=== PATIENT | female | born 1955 | race Caucasian/White ===

== ENCOUNTER 2017-02-03 18:22 | Inpatient (IN) | payer MEDICARE, OTHER ==
[~2017-02-03] VITALS: Ht 154.9 cm; Wt 84.6 kg
[2017-02-03] MEDS ORDERED: PARO10TA89 PO (18:30)
[2017-02-03] MEDS ORDERED: VITAD1000 PO (18:30)
[2017-02-03] MEDS ORDERED: NITR.4 SL (18:30)
[2017-02-03] MEDS ORDERED: LEVO125 PO (18:30)
[2017-02-03] MEDS ORDERED: METF850T2 PO (18:30)
[2017-02-03] MEDS ORDERED: OMEP20 PO (18:30)
[2017-02-03] MEDS ORDERED: LOSA25TA21 PO (18:36)
[2017-02-03 18:43] LABS: GLUCOSE,POINT OF CARE 190 MG/DL (70-110)
[2017-02-03] MEDS ORDERED: LEVO175T9 PO (18:52)
[2017-02-03] MEDS ORDERED: ACETAMINOPHEN 500 MG TABLET PO ONE (19:00)
[2017-02-03] MEDS ORDERED: SODIUM CHLORIDE 0.9% 1,000 ML IV ONE ×2 (19:00→20:45)
[2017-02-03 19:44] LABS: BASOPHILS # (AUTO) 0.02 K/uL (0.00-0.20); BASOPHILS % (AUTO) 0.1 % (0.0-2.0); EOSINOPHILS # (AUTO) 0.01 K/uL (0.00-0.70); EOSINOPHILS % (AUTO) 0.07 % (1.0-6.0); HEMATOCRIT 37.6 % (36-46); HEMOGLOBIN 12.8 g/dL (12.0-16.0); LYMPHOCYTES # (AUTO) 1.3 K/uL (1.0-4.8); LYMPHOCYTES % (AUTO) 11.5 % (22.0-44.0); MEAN CORPUSCULAR HEMOGLOBIN 32.8 pg (26.0-34.0); MEAN CORPUSCULAR HGB CONC 34.1 G/dL (31.0-37.0); MEAN CORPUSCULAR VOLUME 96 fL (80-100); MONOCYTES # (AUTO) 0.8 K/uL (0.1-1.0); MONOCYTES % (AUTO) 6.6 % (2.0-9.0); NEUTROPHILS # (AUTO) 9.5 K/uL (1.8-7.7); NEUTROPHILS % (AUTO) 81.7 % (40.0-70.0); PLATELET COUNT (AUTO) 193 K/uL (150-450); RED BLOOD CELL COUNT(AUTO) 3.92 MIL/uL (4.00-5.20); RED CELL DISTRIBUTION WIDTH 13.9 % (11.5-14.5); WHITE BLOOD COUNT (AUTO) 11.6 K/uL (4.5-11.0)
[2017-02-03 19:52] LABS: CALCIUM, TOTAL 9.1 mg/dL (8.8-10.5); CREATININE 1.22 mg/dL (0.60-1.30); POTASSIUM 3.7 mmol/L (3.5-5.1)
[2017-02-03 19:59] LABS: ALBUMIN 3.4 g/dL (3.4-5.0); BILIRUBIN,TOTAL 0.6 mg/dL (0.1-1.0); TOTAL PROTEIN, SERUM 8.3 g/dL (6.4-8.2)
[2017-02-03] MEDS ORDERED: CefTRIAXone 1 GM/DEXTROSE 50 ML IV ONE (20:00)
[2017-02-03 20:01] LABS: INFLUENZA TYPE B NEGATIVE FOR TYPE B (NEGATIVE)
[2017-02-03 20:02] LABS: APPEARANCE,URINE CLOUDY (CLEAR); GLUCOSE, URINE (UA) NEGATIVE (NEGATIVE); KETONES,URINE TRACE mg/dL (NEGATIVE); LEUKOCYTE ESTERASE ,URINE MODERATE (NEGATIVE); OCCULT BLOOD,URINE MODERATE (NEGATIVE); PROTEIN,URINE SEE CONFIRM (NEGATIVE)
[2017-02-03 20:18] LABS: SQUAMOUS EPITHELIAL CELL,UR Few /LPF (None Seen); SULFOSALICYLIC ACID,URINE 3+ (Negative); WBC,URINE 26-50 /HPF (0-5)
[2017-02-03 20:39] LABS: LACTIC ACID 1.1 mmol/L (0.4-2.0)
[2017-02-03] MEDS ORDERED: INSULIN REGULAR, HUMAN 100 UNITS/ML SQ PRN (20:45)
[2017-02-03] MEDS ORDERED: ONDANSETRON HCL 4 MG/2 ML VIAL IVP PRN (20:45)
[2017-02-03] MEDS ORDERED: DEXTROSE 50%-WATER 25 GM/50 ML SYRINGE IVP PRN (20:45)
[2017-02-03 22:25] VITALS: BP 123/62
[2017-02-03] MEDS: ACETAMINOPHEN 325 MG TABLET PO PRN (22:45)
[2017-02-04 04:11] VITALS: BP 131/69
[2017-02-04] MEDS: ACETAMINOPHEN 325 MG TABLET PO PRN (06:02)
[2017-02-04 07:00] LABS: HEMOGLOBIN A1C 6.9 % (4.5-6.2)
[2017-02-04 07:21] VITALS: BP 123/46
[2017-02-04 07:32] LABS: THYROID STIMULATING HORMONE 7.39 uIU/mL (0.36-3.74)
[2017-02-04] MEDS ORDERED: ACETAMINOPHEN 325 MG TABLET PO ONE (09:30)
[2017-02-04 11:53] VITALS: BP 112/57
[2017-02-04 14:48] LABS: GLUCOSE COMMENT 1 Received Meds; GLUCOSE,POINT OF CARE 179 MG/DL (70-110)
[2017-02-04 14:48] LABS: GLUCOSE,POINT OF CARE 173 MG/DL (70-110)
[2017-02-04 15:24] VITALS: BP 123/65
[2017-02-04] MEDS ORDERED: ACETAMINOPHEN 325 MG TABLET PO PRN (15:30)
[2017-02-04] MEDS ORDERED: ONDANSETRON HCL 4 MG/2 ML VIAL IVP PRN (15:30)
[2017-02-04] MEDS ORDERED: DEXTROSE 50%-WATER 25 GM/50 ML SYRINGE IVP PRN (17:00)
[2017-02-04 17:08] LABS: GLUCOSE,POINT OF CARE 135 MG/DL (70-110)
[2017-02-04 19:11] VITALS: BP 130/67
[2017-02-04] MEDS: HYDROCODONE/ACETAMINOPHEN 5-325 MG TABLET PO PRN (20:20)
[2017-02-04] MEDS: INSULIN REGULAR, HUMAN 100 UNITS/ML SQ PRN (20:21)
[2017-02-04 23:28] LABS: GLUCOSE COMMENT 1 Received Meds; GLUCOSE,POINT OF CARE 213 MG/DL (70-110)
[2017-02-04 23:52] VITALS: BP 120/63
[2017-02-05] MEDS: HYDROCODONE/ACETAMINOPHEN 5-325 MG TABLET PO PRN ×4 (02:28→22:37)
[2017-02-05 04:54] VITALS: BP 115/60
[2017-02-05] MEDS: INSULIN REGULAR, HUMAN 100 UNITS/ML SQ PRN ×4 (06:10→20:15)
[2017-02-05 06:48] LABS: GLUCOSE COMMENT 1 Received Meds; GLUCOSE,POINT OF CARE 145 MG/DL (70-110)
[2017-02-05 07:08] VITALS: BP 125/57
[2017-02-05] MEDS ORDERED: SODIUM CHLORIDE 0.9% 50 ML ONE (09:38)
[2017-02-05] MEDS: MetFORMIN HCL 850 MG TABLET PO SCH (09:40)
[2017-02-05] MEDS: CefTRIAXone 1 GM/DEXTROSE 50 ML IV SCH (09:40)
[2017-02-05 11:08] VITALS: BP 122/73
[2017-02-05 14:58] LABS: GLUCOSE,POINT OF CARE 219 MG/DL (70-110)
[2017-02-05 15:13] VITALS: BP 112/64
[2017-02-05 19:35] VITALS: BP 138/75
[2017-02-05 22:48] LABS: GLUCOSE COMMENT 1 Received Meds; GLUCOSE,POINT OF CARE 178 MG/DL (70-110)
[2017-02-05 22:48] LABS: GLUCOSE,POINT OF CARE 157 MG/DL (70-110)
[2017-02-06 00:02] VITALS: BP 114/57
[2017-02-06 04:26] VITALS: BP 120/86
[2017-02-06] MEDS: HYDROCODONE/ACETAMINOPHEN 5-325 MG TABLET PO PRN (05:14)
[2017-02-06 05:45] LABS: BASOPHILS # (AUTO) 0.05 K/uL (0.00-0.20); BASOPHILS % (AUTO) 0.6 % (0.0-2.0); EOSINOPHILS # (AUTO) 0.36 K/uL (0.00-0.70); EOSINOPHILS % (AUTO) 4.17 % (1.0-6.0); HEMATOCRIT 35.9 % (36-46); HEMOGLOBIN 11.9 g/dL (12.0-16.0); LYMPHOCYTES # (AUTO) 2.7 K/uL (1.0-4.8); LYMPHOCYTES % (AUTO) 31.5 % (22.0-44.0); MEAN CORPUSCULAR HEMOGLOBIN 32.3 pg (26.0-34.0); MEAN CORPUSCULAR HGB CONC 33.2 G/dL (31.0-37.0); MEAN CORPUSCULAR VOLUME 97 fL (80-100); MONOCYTES # (AUTO) 0.6 K/uL (0.1-1.0); MONOCYTES % (AUTO) 7.3 % (2.0-9.0); NEUTROPHILS # (AUTO) 4.9 K/uL (1.8-7.7); NEUTROPHILS % (AUTO) 56.5 % (40.0-70.0); PLATELET COUNT (AUTO) 260 K/uL (150-450); RED BLOOD CELL COUNT(AUTO) 3.69 MIL/uL (4.00-5.20); RED CELL DISTRIBUTION WIDTH 14.2 % (11.5-14.5); WHITE BLOOD COUNT (AUTO) 8.6 K/uL (4.5-11.0)
[2017-02-06 06:10] LABS: ANION GAP 11 mmol/L (8-16); CARBON DIOXIDE 25 mmol/L (22-29); CHLORIDE 101 mmol/L (98-107); GLOMERULAR FILTR. RATE CALC > 60 mL/min (>60); POTASSIUM 3.7 mmol/L (3.5-5.1); SODIUM SERUM 137 mmol/L (136-145); UREA NITROGEN, BLOOD 14 mg/dL (7-18)
[2017-02-06] MEDS: INSULIN REGULAR, HUMAN 100 UNITS/ML SQ PRN (06:24)
[2017-02-06 07:02] LABS: GLUCOSE COMMENT 1 Received Meds; GLUCOSE,POINT OF CARE 146 MG/DL (70-110)
[2017-02-06 07:12] VITALS: BP 121/67
[2017-02-06] MEDS: CefTRIAXone 1 GM/DEXTROSE 50 ML IV SCH (08:26)
[2017-02-06] MEDS: MetFORMIN HCL 850 MG TABLET PO SCH (08:26)
[2017-02-06] MEDS ORDERED: DEXTROSE 50%-WATER 25 GM/50 ML SYRINGE IVP PRN ×2 (10:45→16:15)
[2017-02-06] MEDS ORDERED: OMEPRAZOLE 20 MG CAPSULE PO SCH (11:00)
[2017-02-06] MEDS ORDERED: PARoxetine HCL 10 MG TABLET PO SCH ×2 (11:00→21:00)
[2017-02-06] MEDS ORDERED: CHOLECALCIFEROL (VIT D3) 1,000 UNITS TABLET PO SCH (11:00)
[2017-02-06] MEDS ORDERED: LOSARTAN POTASSIUM 25 MG TABLET PO SCH (11:00)
[2017-02-06 11:31] VITALS: BP 132/73
[2017-02-06] MEDS ORDERED: CIPR-278 PO (15:27)
[2017-02-06 15:40] VITALS: BP 114/74
[2017-02-06] MEDS ORDERED: INSULIN ASPART 100 UNITS/ML SQ PRN (16:15)
[2017-02-07 03:53] LABS: GLUCOSE,POINT OF CARE 103 MG/DL (70-110)
[2017-02-07 03:53] LABS: GLUCOSE,POINT OF CARE 125 MG/DL (70-110)
== END 2017-02-06 18:33 | disposition home or self-care (01) | DRG 872 ==
LOC: EMS 18:24 → 5N 20:09
PROVIDERS: ADMIT Internal Medicine; ATTEND Family Medicine
DX: A41.9 Sepsis, unspecified organism (principal); E11.65 Type 2 diabetes mellitus with hyperglycemia; N10 Acute pyelonephritis; I10 Essential (primary) hypertension; F41.9 Anxiety disorder, unspecified; K21.9 Gastro-esophageal reflux disease without esophagitis; E03.9 Hypothyroidism, unspecified; F32.9 Major depressive disorder, single episode, unspecified; Z79.84 Long term (current) use of oral hypoglycemic drugs; Z79.899 Other long term (current) drug therapy; Z81.1 Family history of alcohol abuse and dependence; Z83.3 Family history of diabetes mellitus
CPT/HCPCS: 82308; 82962; 83036; 83605; 83735; 84443; 87040; 87086; 87804; 93005; 96360; 96365; 99285; J0696; J2405; J7030; J7050

== ENCOUNTER 2018-02-05 14:37 | Emergency (ER) | payer MEDICARE, OTHER ==
[~2018-02-05] VITALS: Ht 165.1 cm; Wt 100.0 kg
[~2018-02-05 14:37] MED LIST: CIPR-278 PO; LEVO175T9 PO; LOSA25TA16 PO; METF-445 PO; NITR.4 SL; OMEP20 PO; PARO10TA89 PO; VITAD1000 PO
[2018-02-05 14:53] LABS: GLUCOSE,POINT OF CARE 196 MG/DL (70-110)
[2018-02-05] MEDS ORDERED: ONDANSETRON HCL 4 MG/2 ML VIAL IVP ONE (15:30)
[2018-02-05] MEDS ORDERED: KETOROLAC TROMETHAMINE 30 MG/ML VIAL IVP ONE (15:30)
[2018-02-05] MEDS ORDERED: SODIUM CHLORIDE 0.9% 1,000 ML IV ONE (15:30)
[2018-02-05 15:56] LABS: BASOPHILS % (AUTO) 0.9 % (0.0-2.0); EOSINOPHILS % (AUTO) 2.8 % (1.0-6.0); HEMOGLOBIN 14.6 g/dL (12.0-16.0); LYMPHOCYTES % (AUTO) 30.7 % (22.0-44.0); MEAN CORPUSCULAR HGB CONC 34.7 G/dL (31.0-37.0); MEAN CORPUSCULAR VOLUME 95 fL (80-100); MONOCYTES # (AUTO) 0.5 K/uL (0.1-1.0); MONOCYTES % (AUTO) 5.5 % (2.0-9.0); NEUTROPHILS # (AUTO) 5.9 K/uL (1.8-7.7); NEUTROPHILS % (AUTO) 60.1 % (40.0-70.0); PLATELET COUNT (AUTO) 236 K/uL (150-450); RED BLOOD CELL COUNT(AUTO) 4.41 MIL/uL (4.00-5.20); RED CELL DISTRIBUTION WIDTH 13.5 % (11.5-14.5)
[2018-02-05 16:07] LABS: CALCIUM, TOTAL 9.2 mg/dL (8.8-10.5); CREATININE 0.96 mg/dL (0.60-1.30); POTASSIUM 3.8 mmol/L (3.5-5.1)
[2018-02-05 16:32] LABS: ALBUMIN 3.8 g/dL (3.4-5.0); BILIRUBIN,TOTAL 0.2 mg/dL (0.1-1.0); TOTAL PROTEIN, SERUM 8.2 g/dL (6.4-8.2)
[2018-02-05 17:02] LABS: APPEARANCE,URINE CLEAR (CLEAR); BILIRUBIN,URINE NEGATIVE (NEGATIVE); GLUCOSE, URINE (UA) NEGATIVE (NEGATIVE); KETONES,URINE TRACE mg/dL (NEGATIVE); LEUKOCYTE ESTERASE ,URINE SMALL (NEGATIVE); OCCULT BLOOD,URINE NEGATIVE (NEGATIVE); PH,URINE 5.5 (5.0-8.0); PROTEIN,URINE NEGATIVE (NEGATIVE); UROBILINOGEN,URINE 0.2 mg/dL (<=1.0)
[2018-02-05 17:06] LABS: BACTERIA,URINE Many /HPF (None Seen); NITRATE,URINE POSITIVE (NEGATIVE); RBC,URINE 0-2 /HPF (0-2); SQUAMOUS EPITHELIAL CELL,UR Many /LPF (None Seen)
[2018-02-05] MEDS ORDERED: CefTRIAXone SODIUM 1 GM in DEXTROSE 5%-WATER 10 ML IV ONE (17:15)
[2018-02-05 19:53] VITALS: BP 128/80
== END 2018-02-05 20:06 | disposition home or self-care (01) ==
LOC: EMS 14:38
DX: N39.0 Urinary tract infection, site not specified (principal); R42 Dizziness and giddiness; R07.9 Chest pain, unspecified; I20.9 Angina pectoris, unspecified; E11.9 Type 2 diabetes mellitus without complications; K21.9 Gastro-esophageal reflux disease without esophagitis; I10 Essential (primary) hypertension; E03.9 Hypothyroidism, unspecified; F32.9 Major depressive disorder, single episode, unspecified; Z79.84 Long term (current) use of oral hypoglycemic drugs
CPT/HCPCS: 36415; 71045; 80053; 81001; 82550; 82962; 83690; 84484; 85025; 87077; 87086; 87186; 93005; 96361; 96374; 96375; 99285; J0696; J1885; J2405; J7030; J7060

== ENCOUNTER 2018-06-19 07:08 | Emergency (ER) | payer MEDICARE, OTHER ==
[~2018-06-19] VITALS: Ht 165.1 cm; Wt 86.4 kg
[~2018-06-19 07:08] MED LIST changes: -CIPR-278 PO; -LOSA25TA16 PO; +LOSA25TA41 PO
[2018-06-19 07:23] LABS: GLUCOSE,POINT OF CARE 222 MG/DL (70-110)
[2018-06-19] MEDS ORDERED: ACET-2116 PO (07:28)
[2018-06-19] MEDS ORDERED: ATOR40TA28 PO (07:28)
[2018-06-19] MEDS ORDERED: ICOS1CAP PO (07:28)
[2018-06-19] MEDS ORDERED: ONDANSETRON HCL 4 MG/2 ML VIAL IVP ONE ×2 (07:30→09:15)
[2018-06-19 07:42] LABS: BASOPHILS % (AUTO) 0.7 % (0.0-2.0); EOSINOPHILS % (AUTO) 3.6 % (1.0-6.0); HEMOGLOBIN 14.9 g/dL (12.0-16.0); LYMPHOCYTES # (AUTO) 4.2 K/uL (1.0-4.8); LYMPHOCYTES % (AUTO) 38.4 % (22.0-44.0); MEAN CORPUSCULAR HEMOGLOBIN 32.6 pg (26.0-34.0); MEAN CORPUSCULAR HGB CONC 34.6 G/dL (31.0-37.0); MEAN CORPUSCULAR VOLUME 94 fL (80-100); MONOCYTES # (AUTO) 0.6 K/uL (0.1-1.0); MONOCYTES % (AUTO) 5.2 % (2.0-9.0); NEUTROPHILS # (AUTO) 5.7 K/uL (1.8-7.7); NEUTROPHILS % (AUTO) 52.1 % (40.0-70.0); PLATELET COUNT (AUTO) 268 K/uL (150-450); RED BLOOD CELL COUNT(AUTO) 4.55 MIL/uL (4.00-5.20); RED CELL DISTRIBUTION WIDTH 12.9 % (11.5-14.5)
[2018-06-19 07:47] LABS: BILIRUBIN,URINE NEGATIVE (NEGATIVE); GLUCOSE, URINE (UA) NEGATIVE (NEGATIVE); KETONES,URINE TRACE mg/dL (NEGATIVE); LEUKOCYTE ESTERASE ,URINE SMALL (NEGATIVE); NITRATE,URINE NEGATIVE (NEGATIVE); OCCULT BLOOD,URINE NEGATIVE (NEGATIVE); PROTEIN,URINE POS 1+ (NEGATIVE); UROBILINOGEN,URINE 0.2 mg/dL (<=1.0)
[2018-06-19 07:55] LABS: ANION GAP 13 mmol/L (8-16); CALCIUM, TOTAL 9.1 mg/dL (8.8-10.5); CARBON DIOXIDE 25 mmol/L (22-29); CHLORIDE 103 mmol/L (98-107); CREATININE 0.92 mg/dL (0.60-1.30); GLOMERULAR FILTR. RATE CALC > 60 mL/min (>60); GLUCOSE,RANDOM 237 mg/dL (70-110); POTASSIUM 4.4 mmol/L (3.5-5.1); SODIUM SERUM 141 mmol/L (136-145); UREA NITROGEN, BLOOD 15 mg/dL (7-18)
[2018-06-19 07:58] LABS: APPEARANCE,URINE SLIGHTLY CLOUDY (CLEAR)
[2018-06-19 07:59] LABS: BACTERIA,URINE Few /HPF (None Seen); RBC,URINE 0-2 /HPF (0-2); SQUAMOUS EPITHELIAL CELL,UR Many /LPF (None Seen)
[2018-06-19 08:13] LABS: B-TYPE NATRIURETIC PEPTIDE 11 pg/mL (0-100)
[2018-06-19 08:18] LABS: ALANINE AMINOTRANSFERASE 51 U/L (12-78); ALBUMIN 3.9 g/dL (3.4-5.0); ALKALINE PHOSPHATASE 107 U/L (46-116); ASPARTATE AMINOTRANSFERASE 30 U/L (15-37); BILIRUBIN,TOTAL 0.4 mg/dL (0.1-1.0); CREATINE KINASE, TOTAL ONLY 88 U/L (26-192); TOTAL PROTEIN, SERUM 8.6 g/dL (6.4-8.2)
[2018-06-19] MEDS ORDERED: MORPHINE SULFATE 4 MG/ML SYRINGE IVP ONE (09:15)
[2018-06-19] MEDS ORDERED: SODIUM CHLORIDE 0.9% 1,000 ML IV ONE (09:30)
[2018-06-19 18:09] LABS: GLUCOSE,POINT OF CARE 174 MG/DL (70-110)
[2018-06-19] MEDS ORDERED: ASPIRIN 325 MG TABLET PO ONE (18:15)
[2018-06-19 20:39] LABS: GLUCOSE,POINT OF CARE 195 MG/DL (70-110)
[2018-06-19 21:23] VITALS: BP 144/81
== END 2018-06-19 21:30 | disposition other institution (70) ==
LOC: EMS 07:08
DX: E11.9 Type 2 diabetes mellitus without complications (principal); R11.2 Nausea with vomiting, unspecified; R19.7 Diarrhea, unspecified; R07.89 Other chest pain; R10.30 Lower abdominal pain, unspecified; E66.9 Obesity, unspecified; F32.9 Major depressive disorder, single episode, unspecified; K21.9 Gastro-esophageal reflux disease without esophagitis; I10 Essential (primary) hypertension; E03.9 Hypothyroidism, unspecified; Z68.31 Body mass index [BMI] 31.0-31.9, adult; Z79.84 Long term (current) use of oral hypoglycemic drugs
CPT/HCPCS: 36415; 71045; 80053; 81001; 82550; 82962; 83880; 84484; 85025; 93005; 96361; 96374; 96375; 96376; 99285; J2270; J2405; J7030